=== PATIENT | female | born 1945 | race Caucasian/White ===

== ENCOUNTER 2018-03-09 09:14 | Observation (INO) | payer OTHER ==
[~2018-03-09] VITALS: Ht 165.1 cm; Wt 63.5 kg
[~2018-03-09 09:14] MED LIST: Aspirin PO; Cyclobenzaprine Hcl PO; LOPRESSOR25 MG PO; Naproxen PO; PEPCID20 MG PO; TOPROL XL25 MG PO
--- OUTSIDE RECORDS SUMMARY | 2018-03-09 09:18 | XMS REPORT | Summary of Care ---
Author Author Mick Day, [employer] Organization Unknown Address Unknown Phone Unavailable Care Team Providers Care Addictions Recovery Specialist Name Role Phone JEANNE Ornelas, LUIS Unavailable Unavailable LIA MUHAMMAD, NUBIA Arnold Unavailable Unavailable ILA Ornelas, NUBIA Ely Unavailable Luis Philip MD Unavailable Unavailable Unavailable Unavailable Functional Status Name Dates Details Functional status health issues are not documented Status: Name Dates Details Cognitive status health issues are not documented Status: Problems Name Dates Details Acute serous otitis media (381.01, H65.00) Status: Active Encounter for routine gynecological examination with Papanicolaou smear of cervix (V72.31, Z01.419) Status: Active Headache (784.0, R51) Status: Active Skin lesion (709.9, L98.9) Status: Active Sprain, ribs (848.3, S23.41XA) Status: Active Tachycardia (785.0, R00.0) Status: Active Abnormal ECG (794.31, R94.31) Status: Active Chest pain (786.50, R07.9) Status: Active Thrombocytopenia (287.5, D69.6) Status: Active Anterior chest wall pain (786.52, R07.89) Status: Active Fever (780.60, R50.9) Status: Active Hyponatremia (276.1, E87.1) Status: Active Need for influenza vaccination (V04.81, Z23) Status: Active Tendinitis of thumb (727.05, M77.8) Status: Active Acute upper respiratory infection (465.9, J06.9) Status: Active Pain, hand joint, right (719.44, M79.641) Status: Active Pain in joint of left hand (719.44, M25.542) Status: Active Atypical chest pain (786.59, R07.89) Status: Active De Quervain's tenosynovitis, left (727.04, M65.4) Status: Active Routine check-up (V70.0, Z00.00) Status: Active Other abnormal glucose (790.29, R73.09) Status: Active Annual physical exam (V70.0, Z00.00) Status: Active Need for hepatitis C screening test (V73.89, Z11.59) Status: Active Refused pneumococcal vaccine (V64.06, Z28.21) Status: Active Advanced care planning/counseling discussion (V65.49, Z71.89) Status: Active Colon cancer screening (V76.51, Z12.11) Status: Active UTI symptoms (788.99, R39.9) Status: Active Proteinuria, unspecified (791.0, R80.9) Status: Active Breast cancer screening (V76.10, Z12.31) Status: Active Encounter for screening for malignant neoplasm of colon (V76.51, Z12.11) Status: Active Dizziness (780.4, R42) Status: Active Vertigo (780.4, R42) Status: Active Mammogram declined (V64.2, Z53.20) Status: Active superintendent pier current use of anticoagulant therapy (V58.61, Z79.01) Status: Active Essential (primary) hypertension (401.9, I10) Status: Active Atrial fibrillation (427.31, I48.91) Status: Active Special DrClarissa Services Analysis Of Computerized Data Status: Active Duration Of Encounter - Review Of Prior Records (___ min) Status: Active Hyperlipidemia (272.4, E78.5) Status: Active 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 * Quantity: 90 Refills: 0 JEANNE Ornelas, LUIS * Start : 02-Feb-2018 Active Allergies and Adverse Reactions Name Dates Details No Known Drug Allergies (Allergy) Status: Active Past Medical History Name Dates Details History of backache (V13.59, Z87.39) Status: Resolved History of Breast Cancer (V10.3) Status: Resolved History of bronchitis (V12.69, Z87.09) Status: Resolved History of Elevated LDL cholesterol level (272.0, E78.00) Status: Resolved History of malignant neoplasm (V10.90, Z85.9) Status: Resolved History of Mammogram declined (V64.2, Z53.20) Status: Resolved History of Osteoporosis (733.00, M81.0) Status: Resolved Procedures Procedure Dates Details History of Appendectomy Completed History of Section Completed History of Breast Surgery Lumpectomy Completed Immunization Name Dates Details Td on: 08-May-2011 Fluzone INJ Lot #: [id number] on: 29-Sep-2015 Fluzone High-Dose 0.5 ML Intramuscular Suspension Prefilled Syringe Lot #: [id number] on: 05-Sep-2017 Family History Name Dates Details Family history of arthritis (V17.7, Z82.61) Status: Active Family history of diabetes mellitus (V18.0, Z83.3) Status: Active Family history of hypertension (V17.49, Z82.49) Status: Active Family history of cerebrovascular accident (CVA) (V17.1, Z82.3) Status: Active Name Dates Details Family history of arthritis (V17.7, Z82.61) Status: Active Family history of diabetes mellitus (V18.0, Z83.3) Status: Active Family history of hypertension (V17.49, Z82.49) Status: Active Family history of cerebrovascular accident (CVA) (V17.1, Z82.3) Status: Active Name Dates Details Family history of Stroke Complications Status: Active Family history of essential hypertension (V17.49, Z82.49) Status: Active Family history of arthritis (V17.7, Z82.61) Status: Active Family history of diabetes mellitus (V18.0, Z83.3) Status: Active Family history of hypertension (V17.49, Z82.49) Status: Active Family history of cerebrovascular accident (CVA) (V17.1, Z82.3) Status: Active Name Dates Details Family history of arthritis (V17.7, Z82.61) Status: Active Family history of diabetes mellitus (V18.0, Z83.3) Status: Active Family history of hypertension (V17.49, Z82.49) Status: Active Family history of cerebrovascular accident (CVA) (V17.1, Z82.3) Status: Active Social History Name Dates Details - Status: Name Dates Details Never smoker Never smoker Never smoker Vital Signs Date Test Result Details No Known Vitals to report Results Date Description Value Details Results not documented Plan of Care Name Dates Details Planned Observations Planned Goals not documented Planned Encounters Appointment; RAGHAVENDRA CONWAY NP On: 06-Mar-2018 11:30 Appointment; NUBIA FITZGERALD M.D. On: 19-Mar-2018 11:00 Appointment; LUIS PHILIP M.D. On: 07-Apr-2018 14:20 Instructions Name Dates Details Instructions not documented Encounters Appointment; VENKATESH FLYNN D.O. Encounter Diagnosis: Problem not documented On: 29-Feb-2016 12:00 Appointment; VENKATESH FLYNN D.O. Encounter Diagnosis: Problem not documented On: 26-Mar-2016 14:15 Appointment; RAGHAVENDRA CONWAY NP Encounter Diagnosis: Problem not documented On: 09-May-2016 12:00 Appointment; WILLIS POE M.D. Encounter Diagnosis: Problem not documented On: 30-May-2016 10:00 Appointment; WILLIS POE M.D. Encounter Diagnosis: Problem not documented On: 04-Jul-2016 9:30 Appointment; LUIS PHILIP M.D. Encounter Diagnosis: Problem not documented On: 23-Jul-2016 10:00 Appointment; LUIS PHILIP M.D. Encounter Diagnosis: Problem not documented On: 07-Aug-2016 13:00 Appointment; WILLIS POE M.D. Encounter Diagnosis: Problem not documented On: 15-Aug-2016 9:45 Appointment; RAGHAVENDRA CONWAY NP Encounter Diagnosis: Problem not documented On: 25-Dec-2016 12:30 Appointment; LUIS PHILIP M.D. Encounter Diagnosis: Problem not documented On: 11-Feb-2017 13:40 Appointment; RAGHAVENDRA CONWAY NP Encounter Diagnosis: Problem not documented On: 05-Mar-2017 11:30 Appointment; RAGHAVENDRA CONWAY NP Encounter Diagnosis: Problem not documented On: 23-Apr-2017 11:00 Appointment; LUIS PHILIP M.D. Encounter Diagnosis: Problem not documented On: 30-Apr-2017 15:20 Appointment; RAGHAVENDRA CONWAY NP Encounter Diagnosis: Problem not documented On: 05-Sep-2017 11:30 Appointment; NUBIA FITZGERALD M.D. Encounter Diagnosis: Problem not documented On: 23-Sep-2017 10:45 Appointment; LUIS PHILIP M.D. Encounter Diagnosis: Problem not documented On: 26-Sep-2017 11:00 Appointment; DIEGO SONI M.D. Encounter Diagnosis: Problem not documented On: 28-Nov-2017 10:30
[2018-03-09] MEDS ORDERED: ASPIRIN 81 MG CHEW TAB PO ONE (09:30)
--- NOTE | 2018-03-09 10:05 | Diagnostic Imaging Report ---
PROCEDURE: X-RAY CHEST, TWO VIEWS COMPARISON: 07/22/2015. INDICATIONS: COUGH, AFIB FINDINGS: The lungs remain well-inflated and without focal consolidation, pleural effusion, or pneumothorax. Stable cardiomediastinal contour with enlargement of the cardiac silhouette and ulnar arteries. Tortuosity of the thoracic aorta. No overt pulmonary edema. Surgical clips along the right chest wall and axilla. No acute osseous abnormality. Unchanged moderate anterior compression deformity of a lower thoracic vertebral body. CONCLUSION: Cardiomegaly without overt pulmonary edema. Ectasia of the ascending thoracic aorta seen to better advantage on CT scan of the chest from 07/22/2015. Dictated by: Lester Sunshine M.D. on 03/09/2018 at 10:07 Electronically approved by: Lester Sunshine M.D. on 03/09/2018 at 10:07
[2018-03-09 10:50] LABS: BASOPHILS % 0.3 % (0.0-1.0); EOSINOPHILS % 0.1 % (0.0-6.0); HEMATOCRIT 39.4 % (34.2-44.1); LYMPHOCYTES # (AUTO) 0.5 (1.0-3.2); LYMPHOCYTES % 6.5 % (18.0-39.1); MEAN CORPUSCULAR HEMOGLOBIN 32.5 pg (28-32); MEAN CORPUSCULAR VOLUME 98.5 fL (81-99); MONOCYTES # (AUTO) 0.3 (0.2-0.8); MONOCYTES % 4.5 % (4.4-11.3); NEUTROPHILS # (AUTO) 6.2 (2.1-6.9); NEUTROPHILS % 88.5 % (38.7-80.0); PLATELET COUNT 95 x10e3/uL (140-360)
[2018-03-09 10:55] LABS: INR 1.55; PARTIAL THROMBOPLASTIN TIME 37.6 seconds (23.8-35.5); PROTHROMBIN TIME 17.5 seconds (11.9-14.5)
[2018-03-09 11:04] LABS: ALANINE AMINOTRANSFERASE 16 IU/L (0-55); ALBUMIN 3.9 g/dL (3.5-5.0); ALKALINE PHOSPHATASE 137 IU/L (40-150); ANION GAP 13.7 mmol/L (8-16); BLOOD UREA NITROGEN 8 mg/dL (7-26); BUN/CREATININE RATIO 10 (6-25); CALCIUM 9.8 mg/dL (8.4-10.2); CARBON DIOXIDE 25 mmol/L (22-29); CHLORIDE 107 mmol/L (98-107); CREATINE KINASE 59 IU/L (29-168); CREATININE, SERUM 0.82 mg/dL (0.57-1.11); EST GLOMERULAR FILTRATION RATE > 60 ML/MIN (60-); GLUCOSE 93 mg/dL (74-118); POTASSIUM 4.7 mmol/L (3.5-5.1); SODIUM 141 mmol/L (136-145)
[2018-03-09] MEDS ORDERED: LABETALOL HCL 5 MG/ML 20ML VIAL IV PRN (12:15)
[2018-03-09] MEDS: METOPROLOL TARTRATE 25 MG TAB PO SCH (13:25)
[2018-03-09] MEDS: LOSARTAN POTASSIUM 25 MG TAB PO SCH (13:25)
[2018-03-09 13:50] VITALS: BP 141/91
[2018-03-09] MEDS ORDERED: LOSARTAN POTASSIUM 25 MG TAB PO ONE (14:00)
--- NOTE | 2018-03-09 14:18 | Consultation ---
DATE OF CONSULTATION: March 09, 2018 CARDIOLOGY CONSULTATION REQUESTING PHYSICIAN: Dr. Roblero. REASON FOR CONSULT: Hypertension, atrial fibrillation. HISTORY OF PRESENTING ILLNESS: Ms. Terrell is a 72-year-old lady with past medical history as listed below, presented with complaints of a cough. Patient states that she had a sore throat and cough since last night. She apparently recently received a pneumonia shot. She noticed that her blood pressure was high. She normally takes metoprolol. She took an additional metoprolol, and her blood pressure went higher; and, so, she decided to come to the hospital. She also states that she drank some decaf tea. She denies any chest pain. No expectoration or fever. She has a history of atrial fibrillation. reportedly was sick recently. REVIEW OF SYMPTOMS CONSTITUTIONAL: Has some fatigue and weakness. HEENT: No headache, blurring of vision, seizures or syncope. CARDIOVASCULAR: SI, S2, irregularly irregular. RESPIRATORY: Had some sore throat and cough, no fever or expectoration. GI: No abdominal pain, vomiting, diarrhea. : No dysuria, frequency, incontinence. ALLERGIES: NO KNOWN DRUG ALLERGIES. MEDICATIONS: See list. PAST MEDICAL HISTORY 1. History of hypertension. 2. History of atrial fibrillation. PAST SURGICAL HISTORY 1. History of . 2. History of breast biopsy. SOCIAL HISTORY: Does not smoke or drink alcohol. FAMILY HISTORY: Noncontributory. PHYSICAL EXAMINATION GENERAL: A moderately built and nourished lady, alert, oriented, not in any obvious distress. VITAL SIGNS: Heart rate is in the 70s to the 90s. Blood pressure is ranging from the 170s to 190s over the 90s to 100s. HEENT: Atraumatic. NECK: No JVD, bruit, thyromegaly, lymphadenopathy. CARDIOVASCULAR: First and second heart sounds heard. No murmurs, rubs or gallops were appreciated. CHEST: Clear to auscultation. ABDOMINAL: Soft, nontender. EXTREMITIES: No edema. LABS: WBC is 7.0, hemoglobin is 13, hematocrit 39.4, platelets are 95. Sodium is 141, potassium 4.7, chloride is 107, glucose is 93, BUN is 8, creatinine 0.8. BNP is 200. Troponin is less than 0.001. EKG shows atrial fibrillation at 96 beats per minute, normal axis, normal intervals, T-wave inversions III, AVF, V3 to V6. IMPRESSION 1. Accelerated hypertension. 1. Atrial fibrillation. 2. Bronchitis. 3. Elevated Beta natriuretic peptide. 4. Thrombocytopenia PLAN 1. Continue with metoprolol. 2. Start losartan. 3. Get echocardiogram to assess LV function and valvular function. 4. Patient reportedly was taking Xarelto, can continue the same. 5. Further cardiac workup depending on clinical course. I have discussed my impression and plan of management with the patient, and she understands it. As always, appreciate and thank you very much for your referrals. Job#: [id number] EV LISA
[2018-03-09 14:56] VITALS: BP 141/91
[2018-03-09] MEDS ORDERED: METOPROLOL SUCC50 MG PO (16:17)
[2018-03-09] MEDS ORDERED: XARELTO20 MG (16:18)
[2018-03-09 16:33] VITALS: BP 141/91
[2018-03-09 17:42] LABS: CREATINE KINASE 46 IU/L (29-168)
[2018-03-09] MEDS: GUAIFENESIN/CODEINE 10 ML CUP PO PRN (19:22)
[2018-03-09 20:00] VITALS: BP 140/89
[2018-03-10 00:10] VITALS: BP 129/85
[2018-03-10] MEDS: METOPROLOL TARTRATE 25 MG TAB PO SCH (00:49)
[2018-03-10] MEDS: GUAIFENESIN/CODEINE 10 ML CUP PO PRN (00:49)
[2018-03-10 02:39] LABS: CREATINE KINASE 50 IU/L (29-168)
[2018-03-10 04:39] VITALS: BP 134/73
[2018-03-10 07:06] LABS: CHOL/HDL RATIO 3.2 (3.0-3.6)
[2018-03-10 08:20] VITALS: BP 129/83
[2018-03-10] MEDS ORDERED: RIVAROXABAN 20 MG TABLET PO SCH (09:00)
[2018-03-10] MEDS ORDERED: BENZONATATE 100 MG CAP PO ONE (09:00)
[2018-03-10] MEDS ORDERED: ACETAMINOPHEN 325 MG TAB PO ONE (09:00)
[2018-03-10] MEDS ORDERED: LORATADINE 10 MG TAB PO ONE (09:00)
[2018-03-10] MEDS: LOSARTAN POTASSIUM 25 MG TAB PO SCH (09:37)
--- NOTE | 2018-03-10 15:48 | Discharge Summary ---
PRIMARY CARE PHYSICIAN: Dr. Gene Velasquez. CONSULTANTS: Dr. Marcio Wiseman. FINAL DIAGNOSES 1. Hypertensive urgency secondary to coughing up, respiratory symptoms most likely allergic rhinitis with cough. 2. Baseline atrial fibrillation. 3. Hypertension stable. SUMMARY: A 72-year-old female. Because of having increasing cough and some throat discomfort, the patient came to the hospital for evaluation after she took her blood pressure while she was having symptoms and blood pressure was elevated. Blood pressure is stable at this time. Heart rate controlled. EKG is no significant problem changes. The patient has atrial fibrillation and changes unremarkable. Patient is stable. Cardiac enzymes negative. The patient has been cleared by Dr. Marcio Wiseman for discharge home. She will be followed as an outpatient with Dr. Velasquez next week. Patient will go home with 1. Resume home medication. 2. Losartan 50 mg daily. 3. Tessalon Perles 100 mg q.6 p.r.n. for cough. 4. Claritin 10 mg daily. Patient is stable, discharged home today. Follow up as an outpatient as indicated. Job#: [id number] PEDRO LUIS
== END 2018-03-10 11:11 | disposition home or self-care (01) ==
LOC: ER 09:23 → IMCU 12:13
PROVIDERS: ADMIT Internal Medicine; ATTEND Internal Medicine
DX: I16.0 Hypertensive urgency (principal); I10 Essential (primary) hypertension; I48.91 Unspecified atrial fibrillation; Z79.01 Long term (current) use of anticoagulants; F41.9 Anxiety disorder, unspecified; J40 Bronchitis, not specified as acute or chronic; D69.6 Thrombocytopenia, unspecified
CPT/HCPCS: 36415 ×2; 71046; 80053; 80061; 82550 ×2; 82553 ×2; 83880; 84443; 84484 ×2; 85025; 85610; 85730; 93005 ×2; 99284; G0378 ×2; J3490

== ENCOUNTER 2018-05-15 13:03 | Emergency (ER) | payer OTHER ==
[~2018-05-15] VITALS: Ht 165.1 cm; Wt 61.2 kg
[~2018-05-15 13:03] MED LIST changes: +METOPROLOL SUCC50 MG PO; +XARELTO20 MG
[2018-05-15 13:46] LABS: BASOPHILS % 0.2 % (0.0-1.0); EOSINOPHILS % 0.7 % (0.0-6.0); HEMATOCRIT 42.6 % (34.2-44.1); HEMOGLOBIN 14.4 g/dL (12.0-16.0); MEAN CORPUSCULAR HEMOGLOBIN 32.7 pg (28-32); MEAN CORPUSCULAR HGB CONC 33.8 g/dL (31-35); MEAN CORPUSCULAR VOLUME 96.6 fL (81-99); MONOCYTES # (AUTO) 0.4 (0.2-0.8); NEUTROPHILS # (AUTO) 3.9 (2.1-6.9); NEUTROPHILS % 72.9 % (38.7-80.0); PLATELET COUNT 117 x10e3/uL (140-360); RED BLOOD COUNT 4.41 x10e6/uL (3.6-5.1); RED CELL DISTRIBUTION WIDTH 12.9 % (11.7-14.4)
[2018-05-15 13:50] LABS: INR 1.79; PROTHROMBIN TIME 19.5 seconds (11.9-14.5)
[2018-05-15 13:51] LABS: PARTIAL THROMBOPLASTIN TIME 37.7 seconds (23.8-35.5)
[2018-05-15 13:58] LABS: ALANINE AMINOTRANSFERASE 24 IU/L (0-55); ALBUMIN 4.5 g/dL (3.5-5.0); ALBUMIN/GLOBULIN RATIO 1.2 (0.8-2.0); ALKALINE PHOSPHATASE 126 IU/L (40-150); ANION GAP 14.2 mmol/L (8-16); BLOOD UREA NITROGEN 13 mg/dL (7-26); BUN/CREATININE RATIO 13 (6-25); CALCIUM 10.3 mg/dL (8.4-10.2); CARBON DIOXIDE 28 mmol/L (22-29); CHLORIDE 95 mmol/L (98-107); CREATINE KINASE 70 IU/L (29-168); CREATININE, SERUM 0.99 mg/dL (0.57-1.11); EST GLOMERULAR FILTRATION RATE 55 ML/MIN (60-); GLUCOSE 95 mg/dL (74-118); MAGNESIUM 2.2 MG/DL (1.3-2.1); POTASSIUM 4.2 mmol/L (3.5-5.1); SODIUM 133 mmol/L (136-145)
--- NOTE | 2018-05-15 14:07 | Diagnostic Imaging Report ---
PROCEDURE: A single AP view of the chest. COMPARISON: Chest radiograph 03/09/2018, CT chest 07/22/2015 INDICATIONS: HYPOTENSION FINDINGS: Lines/tubes: None. Lungs: The lungs are well inflated and clear. There is no evidence of pneumonia or pulmonary edema. Pleura: There is no pleural effusion or pneumothorax. Heart and mediastinum: Stable mild enlargement of the cardiac silhouette. Tortuous aorta. Ectasia better seen on prior CT chest 07/22/2015. Bones: No acute bony abnormality. Soft tissues: Surgical clips project over the right axilla and right chest wall. IMPRESSION: No acute cardiopulmonary disease. Dictated by: Scar Dillon M.D. on 05/15/2018 at 14:11 Electronically approved by: Scar Dillon M.D. on 05/15/2018 at 14:11
[2018-05-15 15:11] LABS: BILIRUBIN,URINE NEGATIVE (NEGATIVE); CLARITY,URINE CLEAR (CLEAR); COLOR,URINE YELLOW (YELLOW); KETONES,URINE NEGATIVE (NEGATIVE); LEUKOCYTE ESTERASE ,URINE NEGATIVE (NEGATIVE); NITRITE,URINE NEGATIVE (NEGATIVE); PROTEIN,URINE DIPSTICK NEGATIVE (NEGATIVE); URINE UROBILINOGEN 0.2 mg/dL (0.2 - 1)
[2018-05-15 15:24] LABS: EPITHELIAL CELLS,URINE RARE /LPF
[2018-05-15 16:27] VITALS: BP 147/83
== END 2018-05-15 16:44 | disposition home or self-care (01) ==
LOC: ER 13:03
DX: I10 Essential (primary) hypertension (principal); I48.0 Paroxysmal atrial fibrillation
CPT/HCPCS: 36415; 71045; 80053; 81001; 82550; 82553; 83735; 83880; 84484; 85025; 85610; 85730; 93005; 99283

== ENCOUNTER 2020-05-16 13:58 | Emergency (ER) | payer MEDICARE, OTHER ==
[~2020-05-16] VITALS: Ht 167.6 cm; Wt 61.2 kg
--- NOTE | 2020-05-16 14:45 | Emergency Department Note ---
History of Present Illnes History of Present Illness Chief Complaint: fall, left wrist pain History of Present Illness This is a 75 year old female, with a history of hypertension, atrial fibrillation, and breast cancer who states that she was at home approximately 1 hour prior to arrival, when she inadvertently tripped over the phone cord, which caused her to fall onto the carpeted floor, landing on her left arm. Since the fall, she's had pain and swelling in the left wrist. She denies any numbness, or tingling of the left hand or arm. She also denies any other injury, including no head injury. Patient does take a look was for atrial fibrillation. She denies any syncopal symptoms, stating that she simply got her foot caught in the phone cord, which caused her to trip and fall. Historian: Patient Arrival Mode: Car Erp Business Analyst Required: No Onset (how long ago): hour(s) (1) Location: left wrist Quality: pain Radiation: Reports non-radiation Severity: moderate Onset quality: sudden Duration (how long): hour(s) (1) Timing of current episode: constant Progression: unchanged Chronicity: new Context: Reports trauma/injury (see history of present illness) Relieving factors: none Exacerbating factors: movement Treatments prior to arrival: none Risk factors: age, blood thinner Past Medical/Family History Physician Review I have reviewed the patient's past medical and family history. Any updates have been documented here. Past Medical History Recent Fever: No Clinical Suspicion of Infectio: No New/Unexplained Change in Ment: No Past Medical History: A-Fib, Cancer Other Medical History: MITRAL VALVE REGURGITATION BREAST CA Past Surgical History: Appendectomy, Tubal Ligation, Other Surgery: lumpectomy right side vein stripping Social History Smoking Cessation: Never Smoker Alcohol Use: None Any Illegal Drug Use: No TB Exposure/Symptoms: No Physically hurt or threatened: No Family History Family history of heart diseas: No Other Last Tetanus: utd Any Pre-Existing Lines (PICC,: No Review of Systems Review of Systems Constitutional: Denies chills, Denies fever EENTM: Reports no symptoms Cardiovascular: Reports no symptoms Respiratory: Reports no symptoms Gastrointestinal: Reports no symptoms Genitourinary: Denies no symptoms Musculoskeletal: Reports joint swelling; Denies back pain Integumentary: Reports no symptoms Neurological: Reports no symptoms Psychological: Reports no symptoms Review of other systems: All other systems negative Physical Exam Related Data Allergies: Coded Allergies: No Known Allergies (Unverified , 03/09/18) Triage Vital Signs Vital Signs Date Time Temp Pulse Resp B/P (MAP) Pulse Ox O2 Delivery O2 Flow Rate FiO2 05/16/20 14:23 98.8 72 16 135/100 100 Vital signs reviewed: Yes Physical Exam CONSTITUTIONAL Constitutional: Present well-developed, Present well-nourished; Absent distressed, Absent ill appearing HENT HENT: Present normocephalic, Present atraumatic, Present oropharynx clear/moist, Present nose normal; Absent oropharyngeal exudate HENT L/R: Present left ext ear normal, Present right ext ear normal EYES Eyes: Reports PERRL, Reports conjunctivae normal NECK Neck: Present ROM normal PULMONARY Pulmonary: Present effort normal, Present breath sounds normal CARDIOVASCULAR Cardiovascular: Present regular rhythm, Present heart sounds normal, Present capillary refill normal, Present normal rate GASTROINTESTINAL Abdominal: Present soft, Present nontender, Present bowel sounds normal GENITOURINARY Genitourinary: Present exam deferred SKIN Skin: Present warm MUSCULOSKELETAL Musculoskeletal: Present edema, Present tenderness, Present swelling (swelling of the medial aspect of the left wrist, with mild deformity, decreased range of motion, and pain with any movement of the left wrist) NEUROLOGICAL Neurological: Present alert, Present oriented x 3, Present no gross motor or sensory deficits PSYCHOLOGICAL Psychological: Present mood/affect normal, Present judgement normal Results Imaging Imaging results reviewed: Yes Impressions [place] [address] Patient Name: LOU KIM MR #: [id number] : 1945 Age/Sex: 75/F Req #: [id number] Adm Physician: Ordered by: BERNIE SWANN MD Report #: [id number] Location: [facility] Room/Bed: Procedure: [id number] HOPD/WRIST 3VW LT - HOPD Exam Date: 05/16/20 Exam Time: 1459 REPORT STATUS: Signed EXAMINATION: WRIST 3VW LT - HOPD INDICATION: Fall COMPARISON: None FINDINGS: Nondisplaced minimally impacted left distal radius fracture. Mildly displaced ulnar styloid fracture. Alignment appears near-anatomic. Mild diffuse osteopenia. Mild soft tissue swelling at the wrist. IMPRESSION: Acute minimally impacted left distal radius fracture and mildly displaced ulnar styloid fracture. Signed by: Felipe Lei MD on 05/16/2020 3:36 PM Dictated By: FELIPE LEI MD 35 Transcribed By: ANDREW on 05/16/201535 COPY TO: BERNIE SWANN MD~ Diagnostics Tests Diagnostic test(s) reviewed: Yes Assessment & Plan Medical Decision Making MDM - Apply ice to the left wrist, frequently for the next few days to help with pain and swelling. Keep the left upper extremity elevated to the level of the heart as much as possible, to also help with pain and swelling. - Purchase a sling at one of the local pharmacies, which will also help relieve the pain. If you leave the left hand hanging by your side, this will increase the pain and swelling. - Contact orthopedics tomorrow, to schedule a follow-up appointment for definitive management of the fractures in your left wrist. - For pain, he may take extra strength Tylenol 500 mg2 tablets every 4 hours as needed. Assessment & Plan Final Impression: (1) Fracture of radius and ulna near wrist (2) Fall (3) Hypertension (4) History of atrial dilatation Depart Disposition: HOME, SELF-CARE Last Vital Signs Date Time Temp Pulse Resp B/P (MAP) Pulse Ox O2 Delivery O2 Flow Rate FiO2 05/16/20 14:23 98.8 72 16 135/100 100 Home Meds Reported Medications Rivaroxaban (XARELTO) 20 Mg Tablet, MG DAILY 03/09/18 Metoprolol Succinate (METOPROLOL SUCCINATE) 50 Mg Tab.er.24h, 50 MG PO DAILY, MG 03/09/18 BERNIE SWANN MD May 16, 2020 14:45
[2020-05-16] MEDS ORDERED: ACETAMINOPHEN 325 MG TAB PO ONE (15:00)
--- NOTE | 2020-05-16 15:40 | Diagnostic Imaging Report ---
EXAMINATION: WRIST 3VW LT - HOPD INDICATION: Fall COMPARISON: None FINDINGS: Nondisplaced minimally impacted left distal radius fracture. Mildly displaced ulnar styloid fracture. Alignment appears near-anatomic. Mild diffuse osteopenia. Mild soft tissue swelling at the wrist. IMPRESSION: Acute minimally impacted left distal radius fracture and mildly displaced ulnar styloid fracture. Signed by: Ladonna Lei MD on 05/16/2020 3:36 PM
[2020-05-16] MEDS ORDERED: ACETAMINOPHEN 325 MG TAB ONE (15:52)
== END 2020-05-16 18:00 | disposition home or self-care (01) ==
LOC: FSED 13:58
DX: S52.502A Unspecified fracture of the lower end of left radius, initial encounter for closed fracture (principal); S52.612A Displaced fracture of left ulna styloid process, initial encounter for closed fracture; W01.0XXA Fall on same level from slipping, tripping and stumbling without subsequent striking against object, initial encounter; Y93.01 Activity, walking, marching and hiking; Y92.008 Other place in unspecified non-institutional (private) residence as the place of occurrence of the external cause
CPT/HCPCS: 99283

== ENCOUNTER 2020-10-17 08:07 | Observation (INO) | payer MEDICARE ==
[~2020-10-17] VITALS: Ht 165.1 cm; Wt 61.2 kg
[2020-10-17] MEDS ORDERED: SODIUM CHLORIDE 0.9% 1000ML 1,000 ML IV STA (08:28)
[2020-10-17] MEDS ORDERED: ASPIRIN 81 MG CHEW TAB PO ONE ×2 (08:30→10:30)
[2020-10-17 08:59] LABS: BASOPHILS % 0.3 % (0.0-1.0); EOSINOPHILS # (AUTO) 0.1 (0.0-0.4); EOSINOPHILS % 1.2 % (0.0-6.0); LYMPHOCYTES # (AUTO) 0.6 (1.0-3.2); LYMPHOCYTES % 8.4 % (18.0-39.1); MEAN CORPUSCULAR HEMOGLOBIN 32.3 pg (28-32); MEAN CORPUSCULAR HGB CONC 31.8 g/dL (31-35); MEAN CORPUSCULAR VOLUME 101.4 fL (81-99); MONOCYTES # (AUTO) 0.4 (0.2-0.8); MONOCYTES % 5.7 % (4.4-11.3); NEUTROPHILS # (AUTO) 5.5 (2.1-6.9); NEUTROPHILS % 84.1 % (38.7-80.0); RED BLOOD COUNT 4.34 x10e6/uL (3.6-5.1); RED CELL DISTRIBUTION WIDTH 12.6 % (11.7-14.4)
[2020-10-17 09:13] LABS: PLATELET COUNT 116 x10e3/uL (140-360)
[2020-10-17 09:21] LABS: ALANINE AMINOTRANSFERASE 23 IU/L (0-55); ALBUMIN 4.6 g/dL (3.5-5.0); ALBUMIN/GLOBULIN RATIO 1.1 (0.8-2.0); ALKALINE PHOSPHATASE 152 IU/L (40-150); ANION GAP 15.8 mmol/L (8-16); BLOOD UREA NITROGEN 16 mg/dL (7-26); BUN/CREATININE RATIO 16 (6-25); CALCIUM 10.2 mg/dL (8.4-10.2); CARBON DIOXIDE 28 mmol/L (22-29); CHLORIDE 98 mmol/L (98-107); CREATINE KINASE 62 IU/L (29-168); CREATININE, SERUM 1.01 mg/dL (0.57-1.11); EST GLOMERULAR FILTRATION RATE 53 ML/MIN (60-); GLUCOSE 99 mg/dL (74-118); POTASSIUM 3.8 mmol/L (3.5-5.1); SODIUM 138 mmol/L (136-145)
[2020-10-17] MEDS ORDERED: ONDANSETRON HCL INJ 2MG/ML 2ML 2 MG/ML VIAL IV PRN (10:30)
[2020-10-17] MEDS ORDERED: MORPHINE SULFATE 2 MG/ML SYR 1ML IV PRN (10:30)
[2020-10-17] MEDS ORDERED: MORPHINE SULFATE INJ 4 MG/ML INJ 1ML IV PRN (10:45)
[2020-10-17] MEDS ORDERED: ASPIRIN 81 MG CHEW TAB ONE (16:00)
[2020-10-17] MEDS ORDERED: FUROSEMIDE INJ 10 MG/ML 4 ML VIAL IV ONE (16:30)
[2020-10-17] MEDS ORDERED: RIVAROXABAN 20 MG TABLET PO SCH (16:30)
[2020-10-17 16:31] VITALS: BP 155/86
[2020-10-17 16:34] VITALS: BP 155/86
[2020-10-17 16:40] VITALS: BP 155/86
[2020-10-17] MEDS ORDERED: APIXAB 2.5 MG TABLET PO SCH (17:00)
[2020-10-17] MEDS ORDERED: POTASSIUM CHLORIDE 10MEQ EA PO ONE (17:00)
[2020-10-17] MEDS: APIXABAN 5 MG TABLET PO SCH (17:09)
[2020-10-17 19:04] LABS: CREATINE KINASE MB 1.6 ng/mL (0-5.0)
[2020-10-17 19:20] VITALS: BP 166/97
[2020-10-17 21:00] VITALS: BP 166/97
[2020-10-17] MEDS ORDERED: METOPROLOL SUCCINATE 50 MG TAB XL PO SCH (21:00)
[2020-10-18 00:25] VITALS: BP 148/97
[2020-10-18 04:00] VITALS: BP 158/92
[2020-10-18] MEDS ORDERED: FUROSEMIDE INJ 10 MG/ML 4 ML VIAL IV SCH (06:00)
[2020-10-18 06:23] LABS: BASOPHILS % 0.2 % (0.0-1.0); EOSINOPHILS # (AUTO) 0.1 (0.0-0.4); EOSINOPHILS % 1.1 % (0.0-6.0); HEMATOCRIT 38.8 % (34.2-44.1); HEMOGLOBIN 12.7 g/dL (12.0-16.0); LYMPHOCYTES # (AUTO) 0.8 (1.0-3.2); LYMPHOCYTES % 13.2 % (18.0-39.1); MEAN CORPUSCULAR HGB CONC 32.7 g/dL (31-35); MEAN CORPUSCULAR VOLUME 97.7 fL (81-99); MONOCYTES # (AUTO) 0.5 (0.2-0.8); MONOCYTES % 8.3 % (4.4-11.3); NEUTROPHILS # (AUTO) 4.9 (2.1-6.9); PLATELET COUNT 122 x10e3/uL (140-360); RED BLOOD COUNT 3.97 x10e6/uL (3.6-5.1); RED CELL DISTRIBUTION WIDTH 12.5 % (11.7-14.4)
[2020-10-18 07:03] LABS: ALANINE AMINOTRANSFERASE 17 IU/L (0-55); ALBUMIN 3.7 g/dL (3.5-5.0); ALBUMIN/GLOBULIN RATIO 1.1 (0.8-2.0); ALKALINE PHOSPHATASE 131 IU/L (40-150); ANION GAP 12.7 mmol/L (8-16); BLOOD UREA NITROGEN 16 mg/dL (7-26); BUN/CREATININE RATIO 18 (6-25); CALCIUM 9.1 mg/dL (8.4-10.2); CARBON DIOXIDE 29 mmol/L (22-29); CHLORIDE 99 mmol/L (98-107); CREATININE, SERUM 0.88 mg/dL (0.57-1.11); EST GLOMERULAR FILTRATION RATE > 60 ML/MIN (60-); GLUCOSE 86 mg/dL (74-118); POTASSIUM 3.7 mmol/L (3.5-5.1); SODIUM 137 mmol/L (136-145)
[2020-10-18 07:07] LABS: CREATINE KINASE MB 1.2 ng/mL (0-5.0)
[2020-10-18 08:01] VITALS: BP 132/92
[2020-10-18 08:58] VITALS: BP 132/92
[2020-10-18] MEDS ORDERED: POTASSIUM CHLORIDE 10MEQ EA PO SCH (09:00)
[2020-10-18] MEDS: APIXABAN 5 MG TABLET PO SCH (09:48)
[2020-10-18] MEDS ORDERED: LASIX40 MG PO (10:13)
[2020-10-18] MEDS ORDERED: POTASSIUM CHLO20 ME1 PO (10:14)
== END 2020-10-18 11:00 | disposition home or self-care (01) ==
LOC: ER 08:31 → ERHOLD 11:11 → MED/SURG2 15:49
PROVIDERS: ADMIT Internal Medicine; ATTEND Internal Medicine
DX: I11.0 Hypertensive heart disease with heart failure (principal); I50.23 Acute on chronic systolic (congestive) heart failure; I48.20 Chronic atrial fibrillation, unspecified; Z79.01 Long term (current) use of anticoagulants; I87.2 Venous insufficiency (chronic) (peripheral); Z20.828 Contact with and (suspected) exposure to other viral communicable diseases
CPT/HCPCS: 36415 ×2; 70450; 71045; 80053 ×2; 82550 ×2; 82553 ×2; 83880; 84484 ×2; 85025 ×2; 93005; 93306; 99284; G0378 ×2; J1940 ×2; U0002

== ENCOUNTER 2022-03-23 12:23 | Emergency (ER) | payer MEDICARE ==
[~2022-03-23] VITALS: Ht 165.1 cm; Wt 60.5 kg
[~2022-03-23 12:23] MED LIST changes: +LASIX40 MG PO; +POTASSIUM CHLO20 ME1 PO
[2022-03-23] MEDS ORDERED: FLECAINIDE ACE100 MG PO (12:57)
[2022-03-23] MEDS ORDERED: ELIQUIS5 MG PO (12:57)
[2022-03-23] MEDS ORDERED: BACTRIM DS TAB1 EACH PO (12:59)
== END 2022-03-23 13:14 | disposition home or self-care (01) ==
LOC: FSED 12:30
DX: R50.9 Fever, unspecified (principal); N39.0 Urinary tract infection, site not specified; R30.0 Dysuria; I10 Essential (primary) hypertension; E78.5 Hyperlipidemia, unspecified; I48.91 Unspecified atrial fibrillation; Z85.3 Personal history of malignant neoplasm of breast
CPT/HCPCS: 81003; 99283

== ENCOUNTER 2022-04-06 17:37 | Emergency (ER) | payer MEDICARE ==
[~2022-04-06] VITALS: Ht 165.1 cm; Wt 59.0 kg
[~2022-04-06 17:37] MED LIST changes: +BACTRIM DS TAB1 EACH PO; +ELIQUIS5 MG PO; +FLECAINIDE ACE100 MG PO
[2022-04-06] MEDS ORDERED: BEBTELOVIMAB 175 MG INJ IV ONE (19:45)
[2022-04-06] MEDS ORDERED: GUAIFEN-CODEINE10 ML PO (20:16)
== END 2022-04-06 21:00 | disposition home or self-care (01) ==
LOC: FSED 18:05
DX: U07.1 COVID-19 (principal); I10 Essential (primary) hypertension; I48.91 Unspecified atrial fibrillation; Z91.048 Other nonmedicinal substance allergy status; Z79.02 Long term (current) use of antithrombotics/antiplatelets; Z79.899 Other long term (current) drug therapy; Z85.3 Personal history of malignant neoplasm of breast
CPT/HCPCS: 99283

== ENCOUNTER 2022-05-05 11:58 | Emergency (ER) | payer MEDICARE ==
[~2022-05-05] VITALS: Ht 165.1 cm; Wt 59.2 kg
[~2022-05-05 11:58] MED LIST changes: +GUAIFEN-CODEINE10 ML PO
[2022-05-05] MEDS ORDERED: CLONIDINE HCL0.1 MG PO (12:16)
[2022-05-05] MEDS ORDERED: CRINONE1.125 G1 (12:16)
[2022-05-05] MEDS ORDERED: CLONIDINE HCL 0.2 MG TAB PO ONE (12:45)
[2022-05-05] MEDS ORDERED: CLONIDINE HCL 0.1 MG TAB ONE (12:47)
== END 2022-05-05 13:10 | disposition home or self-care (01) ==
LOC: FSED 12:30
DX: I16.0 Hypertensive urgency (principal); Z20.822 Contact with and (suspected) exposure to COVID-19; I48.91 Unspecified atrial fibrillation; Z91.048 Other nonmedicinal substance allergy status; Z79.02 Long term (current) use of antithrombotics/antiplatelets; Z79.899 Other long term (current) drug therapy
CPT/HCPCS: 99283; U0002

== ENCOUNTER 2022-09-17 14:36 | Observation (INO) | payer MEDICARE ==
[~2022-09-17] VITALS: Ht 165.1 cm; Wt 59.0 kg
[~2022-09-17 14:36] MED LIST changes: +CLONIDINE HCL0.1 MG PO; +CRINONE1.125 G1
[2022-09-17 16:12] LABS: BASOPHILS % 0.1 % (0.0-1.0); HEMOGLOBIN 13.7 g/dL (12.0-16.0); LYMPHOCYTES # (AUTO) 0.6 (1.0-3.2); LYMPHOCYTES % 8.7 % (18.0-39.1); MEAN CORPUSCULAR HEMOGLOBIN 32.5 pg (28-32); MEAN CORPUSCULAR HGB CONC 31.9 g/dL (31-35); MEAN CORPUSCULAR VOLUME 102.1 fL (81-99); MONOCYTES # (AUTO) 0.5 (0.2-0.8); MONOCYTES % 7.8 % (4.4-11.3); NEUTROPHILS # (AUTO) 5.6 (2.1-6.9); PLATELET COUNT 107 x10e3/uL (140-360); RED BLOOD COUNT 4.21 x10e6/uL (3.6-5.1); RED CELL DISTRIBUTION WIDTH 12.4 % (11.7-14.4)
[2022-09-17 16:17] LABS: INR 1.18
[2022-09-17 16:25] LABS: MAGNESIUM 2.1 MG/DL (1.3-2.1)
[2022-09-17 16:26] LABS: ANION GAP 16.3 mmol/L (8-16); CALCIUM 9.2 mg/dL (8.4-10.2); POTASSIUM 4.3 mmol/L (3.5-5.1)
[2022-09-17] MEDS: HYDRALAZINE HCL 20 MG/ML VIAL IV PRN ×2 (17:12→22:55)
[2022-09-17] MEDS ORDERED: SODIUM CHLORIDE FLUSH 10 ML SYR INJ PRN (17:30)
[2022-09-17] MEDS ORDERED: ONDANSETRON HCL INJ 2MG/ML 2ML 2 MG/ML VIAL IV PRN (17:30)
[2022-09-17 18:06] LABS: CREATINE KINASE MB 1.6 ng/mL (0-5.0)
[2022-09-17] MEDS ORDERED: ACETAMINOPHEN 325 MG TAB PO PRN (18:45)
[2022-09-17] MEDS ORDERED: POLYETHYLENE GLYCOL 3350 17 GM PACK PO PRN (18:45)
[2022-09-17 19:54] VITALS: BP 171/99
[2022-09-17] MEDS: FLECAINIDE ACETATE 100 MG TAB PO SCH (20:50)
[2022-09-17] MEDS: SODIUM CHLORIDE 0.9% 1000ML 1,000 ML IV SCH (20:59)
[2022-09-17 21:15] VITALS: BP 171/99
[2022-09-18] VITALS (9 sets, daily range): BP systolic 122–160; BP diastolic 83–100
[2022-09-18] MEDS ORDERED: LORAZEPAM 1 MG TAB PO PRN (01:15)
[2022-09-18 05:53] LABS: BASOPHILS % 0.1 % (0.0-1.0); HEMATOCRIT 38.6 % (34.2-44.1); HEMOGLOBIN 12.5 g/dL (12.0-16.0); LYMPHOCYTES # (AUTO) 0.6 (1.0-3.2); LYMPHOCYTES % 8.4 % (18.0-39.1); MEAN CORPUSCULAR HEMOGLOBIN 32.2 pg (28-32); MEAN CORPUSCULAR HGB CONC 32.4 g/dL (31-35); MEAN CORPUSCULAR VOLUME 99.5 fL (81-99); MONOCYTES # (AUTO) 0.5 (0.2-0.8); MONOCYTES % 7.6 % (4.4-11.3); NEUTROPHILS # (AUTO) 5.6 (2.1-6.9); NEUTROPHILS % 83.6 % (38.7-80.0); PLATELET COUNT 105 x10e3/uL (140-360); RED BLOOD COUNT 3.88 x10e6/uL (3.6-5.1); RED CELL DISTRIBUTION WIDTH 12.5 % (11.7-14.4)
[2022-09-18 06:25] LABS: ANION GAP 14.6 mmol/L (8-16); CALCIUM 8.5 mg/dL (8.4-10.2); CREATININE, SERUM 0.71 mg/dL (0.57-1.11); POTASSIUM 3.6 mmol/L (3.5-5.1)
[2022-09-18 06:42] LABS: CHOL/HDL RATIO 3.1 (3.0-3.6); MAGNESIUM 1.8 MG/DL (1.3-2.1); PHOSPHORUS 2.9 MG/DL (2.3-4.7)
[2022-09-18 07:08] LABS: FREE T4 (FREE THYROXINE) 1.09 ng/dL (0.8-1.8); THYROID STIMULATING HORMONE 4.025 uIU/mL (0.350-4.940)
[2022-09-18] MEDS: SODIUM CHLORIDE 0.9% 1000ML 1,000 ML IV SCH ×2 (07:19→16:15)
[2022-09-18 07:22] LABS: CREATINE KINASE MB 1.7 ng/mL (0-5.0)
[2022-09-18] MEDS ORDERED: PANTOPRAZOLE SOD 40 MG TABEC PO SCH (07:30)
[2022-09-18] MEDS: FLECAINIDE ACETATE 100 MG TAB PO SCH (09:00)
[2022-09-18] MEDS: DOCUSATE SODIUM 100 MG CAP PO SCH ×2 (09:00→17:00)
[2022-09-18] MEDS ORDERED: ASPIRIN 325 MG TAB EC PO SCH (09:00)
[2022-09-18] MEDS ORDERED: OSELTAMIVIR PHOSPHATE 75 MG CAP PO SCH (09:00)
[2022-09-18] MEDS: METOPROLOL SUCCINATE 50 MG TAB XL PO SCH ×2 (09:00→16:52)
[2022-09-18] MEDS: APIXABAN 5 MG TABLET PO SCH ×2 (09:00→17:00)
[2022-09-18] MEDS ORDERED: TAMIFLU75 MG PO (09:13)
[2022-09-18] MEDS ORDERED: MEDROL4 MG PO (09:13)
[2022-09-18 14:23] LABS: CREATINE KINASE MB 2.1 ng/mL (0-5.0)
[2022-09-18] MEDS ORDERED: CLONIDINE HCL 0.1 MG TAB PO ONE (17:45)
[2022-09-18] MEDS ORDERED: APIXABAN 5 MG TABLET PO SCH (21:00)
== END 2022-09-18 18:52 | disposition home or self-care (01) ==
LOC: ER 14:39 → INTOOBSV 17:27 → ERHOLD 17:27 → MED/SURG 20:00
PROVIDERS: ADMIT Internal Medicine; ATTEND Internal Medicine
DX: G45.9 Transient cerebral ischemic attack, unspecified (principal); I16.0 Hypertensive urgency; I48.20 Chronic atrial fibrillation, unspecified; J10.1 Influenza due to other identified influenza virus with other respiratory manifestations; D69.6 Thrombocytopenia, unspecified; Z79.01 Long term (current) use of anticoagulants; Z91.09 Other allergy status, other than to drugs and biological substances; Z85.3 Personal history of malignant neoplasm of breast; Z82.3 Family history of stroke; E78.5 Hyperlipidemia, unspecified
CPT/HCPCS: 0223U; 36415 ×2; 70450; 70551; 71045; 80048; 80053; 80061; 82550 ×2; 82553 ×2; 83036; 83735 ×2; 84100; 84439; 84443; 84484 ×2; 85025 ×2; 85610; 85730; 87400; 92526; 92610; 93005; 93880; 94799; 97112; 97161; 99284; G0378 ×2; J0360; J7030 ×2

== ENCOUNTER 2025-01-07 13:33 | Emergency (ER) | payer MEDICARE ==
[~2025-01-07] VITALS: Ht 165.1 cm; Wt 59.0 kg
[~2025-01-07 13:33] MED LIST changes: +MEDROL4 MG PO; +TAMIFLU75 MG PO
[2025-01-07 13:40] VITALS: TEMP 97.5
[2025-01-07 14:06] LABS: BASOPHILS % 0.4 % (0.0-1.0); EOSINOPHILS % 0.7 % (0.0-6.0); HEMATOCRIT 39.3 % (34.2-44.1); HEMOGLOBIN 12.8 g/dL (12.0-16.0); LYMPHOCYTES # (AUTO) 0.5 (1.0-3.2); LYMPHOCYTES % 10.5 % (18.0-39.1); MEAN CORPUSCULAR HEMOGLOBIN 32.4 pg (28-32); MEAN CORPUSCULAR HGB CONC 32.6 g/dL (31-35); MEAN CORPUSCULAR VOLUME 99.5 fL (81-99); MONOCYTES # (AUTO) 0.4 (0.2-0.8); NEUTROPHILS # (AUTO) 3.6 (2.1-6.9); NEUTROPHILS % 80.2 % (38.7-80.0); PLATELET COUNT 98 x10e3/uL (140-360); RED BLOOD COUNT 3.95 x10e6/uL (3.6-5.1); RED CELL DISTRIBUTION WIDTH 13.8 % (11.7-14.4); WHITE BLOOD COUNT 4.48 x10e3/uL (4.8-10.8)
[2025-01-07 14:25] LABS: CORONAVIRUS COVID-19 AG NEGATIVE (NEGATIVE); INFLUENZA A AG NEGATIVE (NEGATIVE); INFLUENZA B AG NEGATIVE (NEGATIVE)
[2025-01-07] MEDS: MECLIZINE HCL 12.5 MG TAB PO STA (15:06)
[2025-01-07 15:13] LABS: BACTERIA,URINE FEW /HPF; BILIRUBIN,URINE NEGATIVE (NEGATIVE); CLARITY,URINE CLEAR (CLEAR); COLOR,URINE YELLOW (YELLOW); EPITHELIAL CELLS,URINE FEW /LPF; GLUCOSE, URINE NEGATIVE (NEGATIVE); KETONES,URINE NEGATIVE (NEGATIVE); LEUKOCYTE ESTERASE ,URINE NEGATIVE (NEGATIVE); NITRITE,URINE NEGATIVE (NEGATIVE); PH,URINE 6 (5 - 7); PROTEIN,URINE DIPSTICK NEGATIVE (NEGATIVE); RBC,URINE 0-5 /HPF (0-5); URINE UROBILINOGEN 0.2 mg/dL (0.2 - 1); WBC,URINE (MAN) 0-5 /HPF (0-5)
[2025-01-07 15:54] LABS: INR 1.1; PROTHROMBIN TIME 14.9 seconds (11.9-14.5)
[2025-01-07 15:55] LABS: PARTIAL THROMBOPLASTIN TIME 32.4 seconds (23.8-35.5)
[2025-01-07 16:06] LABS: ALBUMIN/GLOBULIN RATIO 1.3 (0.8-2.0); ANION GAP 14.1 mmol/L (8-16); BILIRUBIN,TOTAL 0.9 mg/dL (0.2-1.2); CALCIUM 9.4 mg/dL (8.4-10.2); CREATININE, SERUM 0.94 mg/dL (0.57-1.11); POTASSIUM 4.1 mmol/L (3.5-5.1); TOTAL PROTEIN 7.1 g/dL (6.5-8.1)
[2025-01-07 16:55] VITALS: PULSE 86; RESP 16; O2SAT 99
== END 2025-01-07 16:56 | disposition home or self-care (01) ==
LOC: ER 13:48
DX: R42 Dizziness and giddiness (principal); I10 Essential (primary) hypertension; I48.91 Unspecified atrial fibrillation; E78.5 Hyperlipidemia, unspecified; D68.9 Coagulation defect, unspecified; Z11.52 Encounter for screening for COVID-19; R94.31 Abnormal electrocardiogram [ECG] [EKG]; Z85.89 Personal history of malignant neoplasm of other organs and systems
CPT/HCPCS: 36415; 70450; 71045; 80053; 81001; 84484; 85025; 85610; 85730; 93005; 99284

== ENCOUNTER 2025-04-26 11:35 | Emergency (ER) | payer MEDICARE ==
[~2025-04-26] VITALS: Ht 165.1 cm; Wt 59.9 kg
[2025-04-26] MEDS: TRAMADOL HCL 50 MG TAB PO ONE (12:38)
[2025-04-26 13:18] VITALS: PULSE 70; RESP 16; TEMP 97.7; O2SAT 99
== END 2025-04-26 13:48 | disposition home or self-care (01) ==
LOC: FSED 11:57
DX: S20.219A Contusion of unspecified front wall of thorax, initial encounter (principal); W01.198A Fall on same level from slipping, tripping and stumbling with subsequent striking against other object, initial encounter; Y93.01 Activity, walking, marching and hiking; Y92.89 Other specified places as the place of occurrence of the external cause; I10 Essential (primary) hypertension; E78.5 Hyperlipidemia, unspecified; I48.91 Unspecified atrial fibrillation; D68.9 Coagulation defect, unspecified; R94.31 Abnormal electrocardiogram [ECG] [EKG]; Z85.89 Personal history of malignant neoplasm of other organs and systems
CPT/HCPCS: 71250; 93005; 99284